=== PATIENT | female | born 1975 | race Caucasian/White ===

== ENCOUNTER 2017-01-30 06:27 | Inpatient (IN) | payer BC ==
[~2017-01-30 06:27] MED LIST: Lactated Ringers 1,000 ML IV SCH; Lidocaine 1%/Sod Bicarbonate in NS 8.4% 1 ML Syringe PRN; Sodium Chloride 0.9% 10 ML Syringe FLUSH PRN
[2017-01-30] MEDS ORDERED: Lidocaine 1% with EPINEPHrine 1:100,000 20 ML MDV ONE (06:32)
[2017-01-30] MEDS ORDERED: Sodium Chloride 0.9% 50 ML SDV ONE (06:32)
[2017-01-30] MEDS ORDERED: Bupivacaine 0.5% 30 ML SDV ONE (06:32)
[2017-01-30] MEDS ORDERED: Scopolamine 1.5 MG Transdermal Patch TRDERM ONE (06:47)
[2017-01-30] MEDS ORDERED: Dexamethasone 4 MG/ML 5 ML MDV ONE (06:52)
[2017-01-30] MEDS ORDERED: Ondansetron 4 MG/2 ML SDV ONE (06:52)
[2017-01-30] MEDS ORDERED: HYDROmorphone 1 MG/ML Syringe ONE ×2 (06:52→08:03)
[2017-01-30] MEDS ORDERED: Propofol 200 MG/20 ML SDV ONE ×2 (06:52→07:44)
[2017-01-30] MEDS ORDERED: ceFAZolin 1 GM Vial ONE (06:52)
[2017-01-30] MEDS ORDERED: Rocuronium 50 MG/5 ML Vial ONE (06:52)
--- NOTE | 2017-01-30 06:52 | PCM.PREANE ---
Preanesthetic Assessment - Anesthesia/Transfusion/Family Hx Anesthesia History: Prior Anesthesia Reaction Type of Anesthesia Reaction: Excessive Nausea/Vomiting Family History of Anesthesia Reaction: No Transfusion History: Unknown Type of Transfusion Reactions: Reports: Unknown - Review of Systems General: No Symptoms Pulmonary: No Symptoms Cardiovascular: No Symptoms Gastrointestinal: No Symptoms Neurological: No Symptoms Other: Reports: Thyroid Problems, Sinus Problem, Anxiety - Physical Assessment NPO Status Date: 01/29/17 NPO Status Time: 18:00 Pulse: 62 O2 Sat by Pulse Oximetry: 100 Respiratory Rate: 16 Blood Pressure: 118/62 Temperature: 36.8 C Height: 1.7 m Weight: 71.214 kg ASA Class: 2 Mental Status: Alert & Oriented x3 Airway Class: Mallampati = 2 Dentition: Reports: Normal Dentition Thyro-Mental Finger Breadths: 3 Mouth Opening Finger Breadths: 3 ROM/Head Extension: Full Lungs: Clear to Auscultation, Normal Respiratory Effort Cardiovascular: Regular Rate, Regular Rhythm - Lab Values: Laboratory Last Values WBC 4.78 K/mm3 (3.98-10.04) 01/29/17 09:03 RBC 4.57 M/mm3 (3.98-5.22) 01/29/17 09:03 Hgb 13.1 gm/L (11.2-15.7) 01/29/17 09:03 Hct 40.0 % (34.1-44.9) 01/29/17 09:03 MCV 87.5 fl (79.4-94.8) 01/29/17 09:03 MCH 28.7 pg (25.6-32.2) 01/29/17 09:03 MCHC 32.8 g/dl (32.2-35.5) 01/29/17 09:03 RDW Std Deviation 43.5 fL (36.4-46.3) 01/29/17 09:03 Plt Count 394 K/mm3 (182-369) H 01/29/17 09:03 MPV 9.7 fl (9.4-12.3) 01/29/17 09:03 Neut % (Auto) 53.4 % (34.0-71.1) 01/29/17 09:03 Lymph % (Auto) 32.6 % (19.3-51.7) 01/29/17 09:03 [place] % (Auto) 9.8 % (4.7-12.5) 01/29/17 09:03 Eos % (Auto) 3.6 (0.7-5.8) 01/29/17 09:03 Baso % (Auto) 0.4 % (0.1-1.2) 01/29/17 09:03 Neut # (Auto) 2.55 K/mm3 (1.56-6.13) 01/29/17 09:03 Lymph # (Auto) 1.56 K/mm3 (1.18-3.74) 01/29/17 09:03 [place] # (Auto) 0.47 K/mm3 (0.24-0.36) H 01/29/17 09:03 Eos # (Auto) 0.17 K/mm3 (0.04-0.36) 01/29/17 09:03 Baso # (Auto) 0.02 K/mm3 (0.01-0.08) 01/29/17 09:03 HCG, Quant 1.0 mIU/mL 01/29/17 09:03 Blood Type O POSITIVE 01/29/17 09:03 Gel Antibody Screen Negative 01/29/17 09:03 - Allergies Allergies/Adverse Reactions: Allergies Allergy/AdvReac Type Severity Reaction Status Date / Time No Known Allergies Allergy Verified 01/29/17 15:48 - Blood Blood Available: No Product(s) Available: None - Anesthesia Plan Pre-Op Medication Ordered: None - Acknowledgements Anesthesia Type Planned: General Anesthesia Pt an Appropriate Candidate for the Planned Anesthesia: Yes Alternatives and Risks of Anesthesia Discussed w Pt/Guardian: Yes Pt/Guardian Understands and Agrees with Anesthesia Plan: Yes PreAnesthesia Questionnaire HEENT History: Reports: Allergic Rhinitis, Impaired Vision, Sinusitis, Other ( See Below) Other HEENT History: wears glasses, contacts Cardiovascular History: Reports: None Respiratory History: Reports: Other (See Below) Other Respiratory History: cough Genitourinary History: Reports: None [employer] History: Reports: Other (See Below) Other OB/BYN History: dysmenorrhea, fibroids, menorrhagia, irregular menses Musculoskeletal History: Reports: Other (See Below) Other Musculoskeletal History: L wrist ganglion cyst Neurological History: Reports: None Psychiatric History: Reports: Anxiety, Other (See Below) Other Psychiatric History: insomnia Endocrine/Metabolic History: Reports: Hypothyroidism Hematologic History: Reports: None Immunologic History: Reports: None Oncologic (Cancer) History: Reports: None Dermatologic History: Reports: Other (See Below) Other Dermatologic History: perioral dermatitis - Past Surgical History Head Surgeries/Procedures: Reports: None HEENT Surgical History: Reports: Adenoidectomy, Tonsillectomy Cardiovascular Surgical History: Reports: None GI Surgical History: Reports: Appendectomy Neurological Surgical History: Reports: None Oncologic Surgical History: Reports: None - SUBSTANCE USE Smoking Status *Q: Never Smoker Second Hand Smoke Exposure: No Days Per Week of Alcohol Use: 0 Number of Drinks Per Day: 0 Total Drinks Per Week: 0 Recreational Drug Use History: No - HOME MEDS Home Medications: Home Meds Cholecalciferol (Vitamin D3) [Vitamin D3] 1,000 unit PO DAILY 01/29/17 [History] Fish Oil/[place]-3 Fatty Acids [Fish Oil 1,000 MG] 1 gm PO DAILY 01/29/17 [History ] Levothyroxine Sodium [Levothyroxine Sodium] 50 mg PO DAILY 01/29/17 [History] Multivitamin [Daily Rena] 1 tab PO DAILY 01/29/17 [History] - CURRENT (IN HOUSE) MEDS Current Meds: Current Medications Lactated Ringer's (Ringers, Lactated) 1,000 mls @ 125 mls/hr IV ASDIRECTED YOVANY Stop: 01/30/17 23:00 Lidocaine/Sodium Bicarbonate (Buffered Lidocaine 1% In Ns 8.4%) 0.25 ml .XX ONETIME PRN PRN Reason: Prior to IV Start Stop: 01/30/17 18:00 Sodium Chloride (Saline Flush) 10 ml FLUSH ASDIRECTED PRN PRN Reason: Keep Vein Open Stop: 01/30/17 18:00 Discontinued Medications Bupivacaine HCl (Marcaine 0.5%) Confirm Administered Dose 30 ml .ROUTE .STK-MED ONE Stop: 01/30/17 06:33 Cefazolin Sodium (Ancef) Confirm Administered Dose 2 gm .ROUTE .STK-MED ONE Stop: 01/30/17 06:53 Dexamethasone (Dexamethasone) Confirm Administered Dose 20 mg .ROUTE .STK-MED ONE Stop: 01/30/17 06:53 Fentanyl (Sublimaze) Confirm Administered Dose 250 mcg .ROUTE .STK-MED ONE Stop: 01/30/17 06:54 Hydromorphone HCl (Dilaudid) Confirm Administered Dose 1 mg .ROUTE .STK-MED ONE Stop: 01/30/17 06:53 Lidocaine/Epinephrine (Xylocaine 1% With Epinephrine 1:100,000) Confirm Administered Dose 20 ml .ROUTE .STK-MED ONE Stop: 01/30/17 06:33 Midazolam HCl (Versed 1 Mg/Ml) Confirm Administered Dose 2 mg .ROUTE .STK-MED ONE Stop: 01/30/17 06:54 Ondansetron HCl (Zofran) Confirm Administered Dose 4 mg .ROUTE .STK-MED ONE Stop: 01/30/17 06:53 Propofol (Diprivan 20 Ml) Confirm Administered Dose 200 mg .ROUTE .STK-MED ONE Stop: 01/30/17 06:53 Rocuronium [place] (Zemuron) Confirm Administered Dose 50 mg .ROUTE .STK-MED ONE Stop: 01/30/17 06:53 Sodium Chloride (Normal Saline) Confirm Administered Dose 50 ml .ROUTE .STK-MED ONE Stop: 01/30/17 06:33
[2017-01-30] MEDS ORDERED: fentaNYL 250 MCG/5 ML SDV ONE (06:53)
[2017-01-30] MEDS ORDERED: Midazolam 1 MG/ML 2 ML SDV ONE (06:53)
[2017-01-30] MEDS ORDERED: Ondansetron 4 MG/2 ML SDV IVPUSH PRN ×2 (06:56→10:55)
[2017-01-30] MEDS ORDERED: fentaNYL 100 MCG/2 ML SDV IVPUSH PRN (06:56)
[2017-01-30] MEDS ORDERED: Metoclopramide 10 MG/2 ML SDV IVPUSH PRN (06:56)
[2017-01-30] MEDS ORDERED: Ketorolac 30 MG/ML SDV ONE (08:00)
[2017-01-30] MEDS ORDERED: Glycopyrrolate 0.2 MG/ML SDV ONE (08:00)
[2017-01-30] MEDS ORDERED: HYDROmorphone 0.5 MG/0.5 ML Syringe IVPUSH PRN (08:00)
[2017-01-30] MEDS ORDERED: diphenhydrAMINE 50 MG/ML SDV ONE (08:06)
[2017-01-30] MEDS ORDERED: Lactated Ringers 1,000 ML ONE ×2 (08:15→09:10)
[2017-01-30] MEDS ORDERED: Neostigmine Methylsulfate 10 MG/10 ML MDV ONE (09:05)
--- NOTE | 2017-01-30 09:18 | PCM.POSTAN ---
POST ANESTHESIA ASSESSMENT - MENTAL STATUS Mental Status: Alert - VITAL SIGNS Pulse Rate: 74 SaO2: 100 Resp Rate: 9 Blood Pressure: 116/60 Temperature: 36.4 C - RESPIRATORY Respiratory Status: respiratory rate WNL, Airway Patent, O2 Saturation Stable, Supplemental Oxygen - CARDIOVASCULAR CV Status: Pulse Rate WNL, Blood Pressure Stable - GASTROINTESTINAL GI Status: No Symptoms - PAIN Pain Score: 0 - POST OP HYDRATION Hydration Status: Adequate & Stable
--- NOTE | 2017-01-30 09:31 | PCM.OPNOTE ---
- General Post-Op/Procedure Note Date of Surgery/Procedure: 01/30/17 Operative Procedure(s): Diagnostic laparoscopy with lysis of adhesions, total abdominal hysterectomy bilateral salpingectomy (ovaries not removed) Pre Op Diagnosis: Multiple fibroids of the uterus, irregular menses, dysmenorrhea Post-Op Diagnosis: Same Anesthesia Technique: General ET Tube Primary Surgeon: Magdi Emanuel Secondary Surgeon: Sundeep Marroquin Anesthesia Provider: Rema Dick Psychologist Clinical: Kaylynn Phillips Fluid Replacement, Intraop: 2,000 Output, Urine Amount: 260 EBL in mLs: 75 Drain/Tube Comments:: Alas catheter to gravity drainage Complications: None Condition: Good Free Text/Narrative:: Patient was transported to operating room #2 and placed under general anesthesia within the tracheal intubation in the low dorsal lithotomy position SCDs in place and functioning prior surgery Ancef 2 g given intravenously prior surgery. Timeout was performed confirming patient's name, date of , and procedure as laparoscope assisted vaginal hysterectomy possible vaginal hysterectomy possible total abdominal hysterectomy with removal of tubes and possible removal of one or both ovaries in (procedure performed laparoscopy with lysis of adhesions and after evaluation of the surgical area proceeding with total abdominal hysterectomy bilateral salpingectomy and (ovaries not removed)) examination under anesthesia revealed multinodular uterus with minimal descensus. Not much mobility of the uterus under anesthesia and very little descensus with traction and uterine manipulator was placed and patient prepared and draped in a sterile fashion vaginal and abdominal prep. The laparoscopy was performed by injecting 2 mL of Marcaine 0.5% without epinephrine at the umbilicus and midline suprapubic area 5 mm incision was made in pneumoperitoneum needle was introduced and pneumoperitoneum obtained without difficulty 5 mm trocar was then introduced and a additional 5 mm trocar introduced in the suprapubic area and after evaluation of the pelvic organs there were multiple fibroids with adhesions scar tissue and after thorough evaluation of the pelvic area decision made to proceed abdominally. A Pfannenstiel incision was made and carried sharp section to into the anterior fascia peritoneal cavity was entered without difficulty a large Xavier retractor inserted and uterus grasp with double-tooth tenaculum at the fundus and shane clamps at each cornua the left tube removed with LigaSure impact crossclamping activating and incising the left tube removed and proceeding in a pedicle fashion crossclamping activating and incising proceeding towards the uterine vessels on the left side. The right side right tube was then removed in a similar fashion proceeding in a pedicle fashion caudad crossclamping activating and incising until both sets of uterine artery supply to the uterus were transected without difficulty having created a bladder flap this was pushed caudad and the fundus and corpus of the uterus transected at the superior portion of the cervix lower uterine segment to allow for visibility and surgery dissection the cervix was identified palpating anteriorly and posteriorly and utilizing LigaSure impact crossclamping activating incising the vaginal cavity was entered without difficulty and the cervix was removed the vaginal cuff was closed with a running locked suture of 0 Monocryl irrigation was carried out with 500 mL of saline and 250 mL of water followed by 250 mL of saline. Sponge needle pack asthma sharp count correct 2 no bleeding good hemostasis the abdominal cavity was closed with running suture of #1 PDS. The subcutaneous tissue was closed with interrupted 0 Monocryl 3 and the skin was closed with subcuticular suture 3-0 Monocryl with Marlo needle Dermabond P[place]o applied and the umbilical incision was closed with 3-0 Monocryl and Dermabond applied 13 images were taken image 001 shows the left adnexa with the left tube and round ligament at 5:00 of multi nodular fibroid also at 1:00 a small fibroid and above the round ligament on the left side at approximately 12:00 a fibroid image 002 shows adhesions and scar tissue of the right adnexa with multiple fibroids ovary is not visible image 003 shows the multinodular fibroid with uterus with multi fibroids as well image 004 shows the anterior portion of the uterus with multiple fibroids image 005 shows left ovary with the left tube on stretch image 006 shows the right adnexa with adhesions and these adhesions were lysed with blunt and sharp section to allow further evaluation the pelvic area for surgery to determine if flap scope cystovaginal hysterectomy could be performed image 007 shows the right adnexa after lysis of adhesions. Image 008 shows anterior small fibroid in the anterior cul-de-sac image 009 shows area of previous appendectomy image 010 shows one adhesion of the liver to the abdominal wall image 011 shows area of the gallbladder image 012 shows the posterior cul-de-sac image 013 shows anterior left side of the uterus was again adhesions of the fibroid to the anterior abdominal wall and a small fibroid on the surface of the uterus No blood transfusions were required patient was transported postanesthesia care unit in satisfactory condition Alas catheter remains in place to talk with the patient's mother and father and patient will be staying in the hospital overnight
[2017-01-30] MEDS ORDERED: Acetaminophen/oxyCODONE 325-5 MG Tab PO PRN (10:55)
--- NOTE | 2017-01-30 12:59 | PCM.SN ---
- Free Text/Narrative Note: DOS patient awake alert, pain controlled, no vaginal bleeding. De Dios draining well. SCD's in place and working. All questions answered to voiced satisfaction. Remove de dios 0500 in Am and hopefully home tomorrow if progress continues.
[2017-01-30] MEDS ORDERED: Ketorolac 30 MG/ML SDV IVPUSH PRN (14:30)
[2017-01-30] MEDS: Acetaminophen 325 MG Tab PO PRN (15:01)
[2017-01-30] MEDS: Ketorolac 30 MG/ML SDV IVPUSH PRN (19:08)
[2017-01-30] MEDS: Docusate Sodium 100 MG Cap PO SCH (21:15)
[2017-01-31] MEDS: Ketorolac 30 MG/ML SDV IVPUSH PRN (01:29)
[2017-01-31] MEDS: Acetaminophen 325 MG Tab PO PRN (05:00)
[2017-01-31] MEDS ORDERED: Levothyroxine 50 MCG Tab PO SCH (06:00)
--- NOTE | 2017-01-31 06:57 | PCM.DCSUM1 ---
Discharge Summary - Hospital Course Free Text/Narrative:: [facility] Post-Op/Procedure Note Patient Name: CHRISTIANA AHMADI Date of : 77 Patient Status: Inpatient Attending Provider: Magdi Emanuel Date: 01/30/17 09:17 Initialization Date: 01/30/17 09:17 - General Post-Op/Procedure Note Date of Surgery/Procedure: 01/30/17 Operative Procedure(s): Diagnostic laparoscopy with lysis of adhesions, total abdominal hysterectomy bilateral salpingectomy (ovaries not removed) Pre Op Diagnosis: Multiple fibroids of the uterus, irregular menses, dysmenorrhea Post-Op Diagnosis: Same Anesthesia Technique: General ET Tube Primary Surgeon: Magdi Emanuel Secondary Surgeon: Sundeep Marroquin Anesthesia Provider: Rema [employer] Team Member: Kaylynn Phillips Fluid Replacement, Intraop: 2,000 Output, Urine Amount: 260 EBL in mLs: 75 Drain/Tube Comments:: Alas catheter to gravity drainage Complications: None Condition: Good Free Text/Narrative:: Patient was transported to operating room #2 and placed under general anesthesia within the tracheal intubation in the low dorsal lithotomy position SCDs in place and functioning prior surgery Ancef 2 g given intravenously prior surgery. Timeout was performed confirming patient's name, date of , and procedure as laparoscope assisted vaginal hysterectomy possible vaginal hysterectomy possible total abdominal hysterectomy with removal of tubes and possible removal of one or both ovaries in (procedure performed laparoscopy with lysis of adhesions and after evaluation of the surgical area proceeding with total abdominal hysterectomy bilateral salpingectomy and (ovaries not removed)) examination under anesthesia revealed multinodular uterus with minimal descensus. Not much mobility of the uterus under anesthesia and very little descensus with traction and uterine manipulator was placed and patient prepared and draped in a sterile fashion vaginal and abdominal prep. The laparoscopy was performed by injecting 2 mL of Marcaine 0.5% without epinephrine at the umbilicus and midline suprapubic area 5 mm incision was made in pneumoperitoneum needle was introduced and pneumoperitoneum obtained without difficulty 5 mm trocar was then introduced and a additional 5 mm trocar introduced in the suprapubic area and after evaluation of the pelvic organs there were multiple fibroids with adhesions scar tissue and after thorough evaluation of the pelvic area decision made to proceed abdominally. A Pfannenstiel incision was made and carried sharp section to into the anterior fascia peritoneal cavity was entered without difficulty a large Xavier retractor inserted and uterus grasp with double-tooth tenaculum at the fundus and shane clamps at each cornua the left tube removed with LigaSure impact crossclamping activating and incising the left tube removed and proceeding in a pedicle fashion crossclamping activating and incising proceeding towards the uterine vessels on the left side. The right side right tube was then removed in a similar fashion proceeding in a pedicle fashion caudad crossclamping activating and incising until both sets of uterine artery supply to the uterus were transected without difficulty having created a bladder flap this was pushed caudad and the fundus and corpus of the uterus transected at the superior portion of the cervix lower uterine segment to allow for visibility and surgery dissection the cervix was identified palpating anteriorly and posteriorly and utilizing LigaSure impact crossclamping activating incising the vaginal cavity was entered without difficulty and the cervix was removed the vaginal cuff was closed with a running locked suture of 0 Monocryl irrigation was carried out with 500 mL of saline and 250 mL of water followed by 250 mL of saline. Sponge needle pack asthma sharp count correct 2 no bleeding good hemostasis the abdominal cavity was closed with running suture of #1 PDS. The subcutaneous tissue was closed with interrupted 0 Monocryl 3 and the skin was closed with subcuticular suture 3-0 Monocryl with Marlo needle Dermabond Preneo applied and the umbilical incision was closed with 3-0 Monocryl and Dermabond applied 13 images were taken image 001 shows the left adnexa with the left tube and round ligament at 5:00 of multi nodular fibroid also at 1:00 a small fibroid and above the round ligament on the left side at approximately 12:00 a fibroid image 002 shows adhesions and scar tissue of the right adnexa with multiple fibroids ovary is not visible image 003 shows the multinodular fibroid with uterus with multi fibroids as well image 004 shows the anterior portion of the uterus with multiple fibroids image 005 shows left ovary with the left tube on stretch image 006 shows the right adnexa with adhesions and these adhesions were lysed with blunt and sharp section to allow further evaluation the pelvic area for surgery to determine if flap scope cystovaginal hysterectomy could be performed image 007 shows the right adnexa after lysis of adhesions. Image 008 shows anterior small fibroid in the anterior cul-de-sac image 009 shows area of previous appendectomy image 010 shows one adhesion of the liver to the abdominal wall image 011 shows area of the gallbladder image 012 shows the posterior cul-de-sac image 013 shows anterior left side of the uterus was again adhesions of the fibroid to the anterior abdominal wall and a small fibroid on the surface of the uterus No blood transfusions were required patient was transported postanesthesia care unit in satisfactory condition Alas catheter remains in place to talk with the patient's mother and father and patient will be staying in the hospital overnight Alas removed early this AM. Patient did well through the night and will be dismissed to RTC 02/20/2017 HPI Initial Comments: [facility] Post-Op/Procedure Note Patient Name: CHRISTIANA AHMADI Date of : 77 Patient Status: Inpatient Attending Provider: Magdi Emanuel Date: 01/30/17 09:17 Initialization Date: 01/30/17 09:17 - General Post-Op/Procedure Note Date of Surgery/Procedure: 01/30/17 Operative Procedure(s): Diagnostic laparoscopy with lysis of adhesions, total abdominal hysterectomy bilateral salpingectomy (ovaries not removed) Pre Op Diagnosis: Multiple fibroids of the uterus, irregular menses, dysmenorrhea Post-Op Diagnosis: Same Anesthesia Technique: General ET Tube Primary Surgeon: Magdi Emanuel Secondary Surgeon: Sundeep Marroquin Anesthesia Provider: Rema [employer] Team Member: Kaylynn Phillips Fluid Replacement, Intraop: 2,000 Output, Urine Amount: 260 EBL in mLs: 75 Drain/Tube Comments:: Alas catheter to gravity drainage Complications: None Condition: Good Free Text/Narrative:: Patient was transported to operating room #2 and placed under general anesthesia within the tracheal intubation in the low dorsal lithotomy position SCDs in place and functioning prior surgery Ancef 2 g given intravenously prior surgery. Timeout was performed confirming patient's name, date of , and procedure as laparoscope assisted vaginal hysterectomy possible vaginal hysterectomy possible total abdominal hysterectomy with removal of tubes and possible removal of one or both ovaries in (procedure performed laparoscopy with lysis of adhesions and after evaluation of the surgical area proceeding with total abdominal hysterectomy bilateral salpingectomy and (ovaries not removed)) examination under anesthesia revealed multinodular uterus with minimal descensus. Not much mobility of the uterus under anesthesia and very little descensus with traction and uterine manipulator was placed and patient prepared and draped in a sterile fashion vaginal and abdominal prep. The laparoscopy was performed by injecting 2 mL of Marcaine 0.5% without epinephrine at the umbilicus and midline suprapubic area 5 mm incision was made in pneumoperitoneum needle was introduced and pneumoperitoneum obtained without difficulty 5 mm trocar was then introduced and a additional 5 mm trocar introduced in the suprapubic area and after evaluation of the pelvic organs there were multiple fibroids with adhesions scar tissue and after thorough evaluation of the pelvic area decision made to proceed abdominally. A Pfannenstiel incision was made and carried sharp section to into the anterior fascia peritoneal cavity was entered without difficulty a large Xavier retractor inserted and uterus grasp with double-tooth tenaculum at the fundus and shane clamps at each cornua the left tube removed with LigaSure impact crossclamping activating and incising the left tube removed and proceeding in a pedicle fashion crossclamping activating and incising proceeding towards the uterine vessels on the left side. The right side right tube was then removed in a similar fashion proceeding in a pedicle fashion caudad crossclamping activating and incising until both sets of uterine artery supply to the uterus were transected without difficulty having created a bladder flap this was pushed caudad and the fundus and corpus of the uterus transected at the superior portion of the cervix lower uterine segment to allow for visibility and surgery dissection the cervix was identified palpating anteriorly and posteriorly and utilizing LigaSure impact crossclamping activating incising the vaginal cavity was entered without difficulty and the cervix was removed the vaginal cuff was closed with a running locked suture of 0 Monocryl irrigation was carried out with 500 mL of saline and 250 mL of water followed by 250 mL of saline. Sponge needle pack asthma sharp count correct 2 no bleeding good hemostasis the abdominal cavity was closed with running suture of #1 PDS. The subcutaneous tissue was closed with interrupted 0 Monocryl 3 and the skin was closed with subcuticular suture 3-0 Monocryl with Marlo needle Dermabond Preneo applied and the umbilical incision was closed with 3-0 Monocryl and Dermabond applied 13 images were taken image 001 shows the left adnexa with the left tube and round ligament at 5:00 of multi nodular fibroid also at 1:00 a small fibroid and above the round ligament on the left side at approximately 12:00 a fibroid image 002 shows adhesions and scar tissue of the right adnexa with multiple fibroids ovary is not visible image 003 shows the multinodular fibroid with uterus with multi fibroids as well image 004 shows the anterior portion of the uterus with multiple fibroids image 005 shows left ovary with the left tube on stretch image 006 shows the right adnexa with adhesions and these adhesions were lysed with blunt and sharp section to allow further evaluation the pelvic area for surgery to determine if flap scope cystovaginal hysterectomy could be performed image 007 shows the right adnexa after lysis of adhesions. Image 008 shows anterior small fibroid in the anterior cul-de-sac image 009 shows area of previous appendectomy image 010 shows one adhesion of the liver to the abdominal wall image 011 shows area of the gallbladder image 012 shows the posterior cul-de-sac image 013 shows anterior left side of the uterus was again adhesions of the fibroid to the anterior abdominal wall and a small fibroid on the surface of the uterus No blood transfusions were required patient was transported postanesthesia care unit in satisfactory condition Alas catheter remains in place to talk with the patient's mother and father and patient will be staying in the hospital overnight Alas removed early this AM. Patient did well through the night and will be dismissed to RTC 02/20/2017 Brief History: [facility] . Post-Op/Procedure Note. Patient Name: CHRISTIANA AHMADI [facility] Record Number: [id number]. Date of : [birth year]Patient Status: Inpatient. Attending Provider: Magdi Emanuel Number: [id number]. Date: 01/30/17 09:17Initialization Date: 01/30/17 09:17. - General Post-Op/Procedure Note. Date of Surgery/Procedure: 01/30/17. Operative Procedure(s): Diagnostic laparoscopy with lysis of adhesions, total abdominal hysterectomy bilateral salpingectomy (ovaries not removed). Pre Op Diagnosis: Multiple fibroids of the uterus, irregular menses, dysmenorrhea. Post-Op Diagnosis: Same. Anesthesia Technique: General ET Tube. Primary Surgeon: Magdi Emanuel. Secondary Surgeon: Sundeep Marroquin. Anesthesia Provider: Rema Dick. [employer] Team Member: Kaylynn Phillips. Fluid Replacement, Intraop: 2,000. Output, Urine Amount: 260. EBL in mLs: 75. Drain/Tube Comments:: Alas catheter to gravity drainage. Complications: None. Condition : Good. Free Text/Narrative:: Patient was transported to operating room #2 and placed under general anesthesia within the tracheal intubation in the low dorsal lithotomy position SCDs in place and functioning prior surgery Ancef 2 g given intravenously prior surgery. Timeout was performed confirming patient's name, date of , and procedure as laparoscope assisted vaginal hysterectomy possible vaginal hysterectomy possible total abdominal hysterectomy with removal of tubes and possible removal of one or both ovaries in (procedure performed laparoscopy with lysis of adhesions and after evaluation of the surgical area proceeding with total abdominal hysterectomy bilateral salpingectomy and (ovaries not removed)) examination under anesthesia revealed multinodular uterus with minimal descensus. Not much mobility of the uterus under anesthesia and very little descensus with traction and uterine manipulator was placed and patient prepared and draped in a sterile fashion vaginal and abdominal prep. The laparoscopy was performed by injecting 2 mL of Marcaine 0.5% without epinephrine at the umbilicus and midline suprapubic area 5 mm incision was made in pneumoperitoneum needle was introduced and pneumoperitoneum obtained without difficulty 5 mm trocar was then introduced and a additional 5 mm trocar introduced in the suprapubic area and after evaluation of the pelvic organs there were multiple fibroids with adhesions scar tissue and after thorough evaluation of the pelvic area decision made to proceed abdominally. A Pfannenstiel incision was made and carried sharp section to into the anterior fascia peritoneal cavity was entered without difficulty a large Xavier retractor inserted and uterus grasp with double-tooth tenaculum at the fundus and shane clamps at each cornua the left tube removed with LigaSure impact crossclamping activating and incising the left tube removed and proceeding in a pedicle fashion crossclamping activating and incising proceeding towards the uterine vessels on the left side. The right side right tube was then removed in a similar fashion proceeding in a pedicle fashion caudad crossclamping activating and incising until both sets of uterine artery supply to the uterus were transected without difficulty having created a bladder flap this was pushed caudad and the fundus and corpus of the uterus transected at the superior portion of the cervix lower uterine segment to allow for visibility and surgery dissection the cervix was identified palpating anteriorly and posteriorly and utilizing LigaSure impact crossclamping activating incising the vaginal cavity was entered without difficulty and the cervix was removed the vaginal cuff was closed with a running locked suture of 0 Monocryl irrigation was carried out with 500 mL of saline and 250 mL of water followed by 250 mL of saline. Sponge needle pack asthma sharp count correct 2 no bleeding good hemostasis the abdominal cavity was closed with running suture of #1 PDS. The subcutaneous tissue was closed with interrupted 0 Monocryl 3 and the skin was closed with subcuticular suture 3-0 Monocryl with Marlo needle Dermabond Preneo applied and the umbilical incision was closed with 3-0 Monocryl and Dermabond applied. 13 images were taken image 001 shows the left adnexa with the left tube and round ligament at 5:00 of multi nodular fibroid also at 1:00 a small fibroid and above the round ligament on the left side at approximately 12:00 a fibroid image 002 shows adhesions and scar tissue of the right adnexa with multiple fibroids ovary is not visible image 003 shows the multinodular fibroid with uterus with multi fibroids as well image 004 shows the anterior portion of the uterus with multiple fibroids image 005 shows left ovary with the left tube on stretch image 006 shows the right adnexa with adhesions and these adhesions were lysed with blunt and sharp section to allow further evaluation the pelvic area for surgery to determine if flap scope cystovaginal hysterectomy could be performed image 007 shows the right adnexa after lysis of adhesions. Image 008 shows anterior small fibroid in the anterior cul-de-sac image 009 shows area of previous appendectomy image 010 shows one adhesion of the liver to the abdominal wall image 011 shows area of the gallbladder image 012 shows the posterior cul-de-sac image 013 shows anterior left side of the uterus was again adhesions of the fibroid to the anterior abdominal wall and a small fibroid on the surface of the uterus. No blood transfusions were required patient was transported postanesthesia care unit in satisfactory condition Alas catheter remains in place to talk with the patient's mother and father and patient will be staying in the hospital overnight. Alas removed early this AM. Patient did well through the night and will be dismissed to [facility] 02/20/2017 - Discharge Data Discharge Date: 01/31/17 Discharge Disposition: Home, Self-Care 01 Condition: Good - Discharge Diagnosis/Problem(s) (1) Pelvic peritoneal adhesions, female SNOMED Code(s): 97889023 ICD Code: N73.6 - FEMALE PELVIC PERITONEAL ADHESIONS (POSTINFECTIVE) Status : Acute Current Visit: Yes (2) Dysmenorrhea SNOMED Code(s): 333337584 ICD Code: N94.6 - DYSMENORRHEA, UNSPECIFIED Status: Acute Current Visit: Yes (3) Irregular menstruation SNOMED Code(s): 35183904 ICD Code: N92.6 - IRREGULAR MENSTRUATION, UNSPECIFIED Status: Acute Current Visit: Yes (4) Leiomyoma of uterus SNOMED Code(s): 09841670 ICD Code: D25.9 - LEIOMYOMA OF UTERUS, UNSPECIFIED Status: Acute Current Visit: Yes Qualifiers: Uterine leiomyoma location: intramural, submucous, and subserous Qualified Code(s): D25.1 - Intramural leiomyoma of uterus; D25.0 - Submucous leiomyoma of uterus; D25.2 - Subserosal leiomyoma of uterus - Patient Summary/Data Operative Procedure(s) Performed: Diagnostic laparoscopy with lysis of adhesions , total abdominal hysterectomy bilateral salpingectomy (ovaries not removed) Complications: none Consults: none Hospital Course: uneventful - Patient Instructions Diet: Heart Healthy Diet Driving: Do Not Drive (x2 weeks) Showering/Bathing: May Shower, No Tub Bathing/Swimming (x6 weeks) Wound/Incision Care: Keep Operative Site/Wound Site Clean and Dry Notify Provider of: Fever, Increased Pain, Swelling and Redness, Drainage, Nausea and/or Vomiting - Discharge Plan Home Medications: Home Meds Cholecalciferol (Vitamin D3) [Vitamin D3] 1,000 unit PO DAILY 01/29/17 [History] Fish Oil/[place]-3 Fatty Acids [Fish Oil 1,000 MG] 1 gm PO DAILY 01/29/17 [History ] Levothyroxine Sodium 50 mg PO DAILY 01/29/17 [History] Multivitamin [Daily Rena] 1 tab PO DAILY 01/29/17 [History] Acetaminophen [Tylenol] 650 mg PO Q6H PRN #0 tablet 01/31/17 [Rx] Docusate Sodium [Colace] 100 mg PO BID cap 01/31/17 [Rx] Ibuprofen [IJD: Ibuprofen] 200 - 600 mg PO Q6H PRN #0 tablet 01/31/17 [Rx] Referrals: Magdi Emanuel MD [Primary Care Provider] - (02/20/2017) - Discharge Summary/Plan Comment DC Time >30 min.: No - Patient Data Vitals - Most Recent: Last Vital Signs Temp 98.1 F 01/31/17 04:00 Pulse 49 L 01/31/17 05:09 Resp 17 01/31/17 04:00 BP 89/37 L 01/31/17 05:09 Pulse Ox 99 01/31/17 05:09 Weight - Most Recent: 153 lb 1.6 oz I&O - Last 24 hours: Intake & Output 01/30/17 01/30/17 01/31/17 14:59 22:59 06:59 Intake Total 2200 1890 800 Output Total 321 681 8557 Balance 1630 1290 -1175 Lab Results - Last 24 hrs: Laboratory Results - last 24 hr 01/31/17 Range/Units 06:00 WBC 9.04 (3.98-10.04) K/mm3 RBC 3.82 L (3.98-5.22) M/mm3 Hgb 11.0 L (11.2-15.7) gm/L Hct 33.8 L (34.1-44.9) % MCV 88.5 (79.4-94.8) fl MCH 28.8 (25.6-32.2) pg MCHC 32.5 (32.2-35.5) g/dl RDW Std Deviation 43.6 (36.4-46.3) fL Plt Count 320 (182-369) K/mm3 MPV 9.8 (9.4-12.3) fl Neut % (Auto) 64.4 (34.0-71.1) % Lymph % (Auto) 24.1 (19.3-51.7) % [place] % (Auto) 10.6 (4.7-12.5) % Eos % (Auto) 0.7 (0.7-5.8) Baso % (Auto) 0.1 (0.1-1.2) % Neut # (Auto) 5.82 (1.56-6.13) K/mm3 Lymph # (Auto) 2.18 (1.18-3.74) K/mm3 [place] # (Auto) 0.96 H (0.24-0.36) K/mm3 Eos # (Auto) 0.06 (0.04-0.36) K/mm3 Baso # (Auto) 0.01 (0.01-0.08) K/mm3 Med Orders - Current: Current Medications Acetaminophen (Tylenol) 650 mg PO Q4H PRN PRN Reason: Pain (mild 1-3) Last Admin: 01/31/17 05:00 Dose: 650 mg Docusate Sodium (Colace) 100 mg PO BID [facility] Last Admin: 01/30/17 21:15 Dose: 100 mg Ibuprofen (Motrin) 600 mg PO Q6H PRN PRN Reason: Pain (mild 1-3) Ketorolac Tromethamine (Toradol) 30 mg IVPUSH Q6H PRN PRN Reason: Pain Stop: 01/31/17 12:30 Last Admin: 01/31/17 01:29 Dose: 30 mg Levothyroxine Sodium (Synthroid) 50 mcg PO ACBREAKFAST [facility] Last Admin: 01/31/17 05:00 Dose: 50 mcg Ondansetron HCl (Zofran) 4 mg IVPUSH Q4H PRN PRN Reason: Nausea/Vomiting Oxycodone/Acetaminophen (Percocet 325-5 Mg) 2 tab PO Q4H PRN PRN Reason: Pain (moderate 4-6) Discontinued Medications Bupivacaine HCl (Marcaine 0.5%) Confirm Administered Dose 30 ml .ROUTE .STK-MED ONE Stop: 01/30/17 06:33 Last Admin: 01/30/17 07:42 Dose: 4 ml Cefazolin Sodium (Ancef) Confirm Administered Dose 2 gm .ROUTE .STK-MED ONE Stop: 01/30/17 06:53 Dexamethasone (Dexamethasone) Confirm Administered Dose 20 mg .ROUTE .STK-MED ONE Stop: 01/30/17 06:53 Diphenhydramine HCl (Benadryl) Confirm Administered Dose 50 mg .ROUTE .STK-MED ONE Stop: 01/30/17 08:07 Fentanyl (Sublimaze) Confirm Administered Dose 250 mcg .ROUTE .STK-MED ONE Stop: 01/30/17 06:54 Fentanyl (Sublimaze) 50 mcg IVPUSH Q5M PRN PRN Reason: pain Stop: 01/30/17 18:00 Hydromorphone HCl (Dilaudid) Confirm Administered Dose 1 mg .ROUTE .STK-MED ONE Stop: 01/30/17 06:53 Hydromorphone HCl (Dilaudid) 0.5 mg IVPUSH Q15M PRN PRN Reason: Pain (severe 7-10) Stop: 01/30/17 08:16 Last Admin: 01/30/17 09:44 Dose: 0.5 mg Hydromorphone HCl (Dilaudid) Confirm Administered Dose 1 mg .ROUTE .STK-MED ONE Stop: 01/30/17 08:04 Lactated Ringer's (Ringers, Lactated) 1,000 mls @ 125 mls/hr IV ASDIRECTED YOVANY Stop: 01/30/17 23:00 Last Admin: 01/30/17 06:45 Dose: 125 mls/hr Lactated Ringer's (Ringers, Lactated) Confirm Administered Dose 1,000 mls @ as directed .ROUTE .STK-MED ONE Stop: 01/30/17 08:16 Lactated Ringer's (Ringers, Lactated) Confirm Administered Dose 1,000 mls @ as directed .ROUTE .STK-MED ONE Stop: 01/30/17 09:11 Ketorolac Tromethamine (Toradol) Confirm Administered Dose 30 mg .ROUTE .STK- MED ONE Stop: 01/30/17 08:01 Ketorolac Tromethamine (Toradol) 30 mg IVPUSH Q8H PRN PRN Reason: Pain (moderate 4-6) Stop: 01/31/17 06:31 Lidocaine/Epinephrine (Xylocaine 1% With Epinephrine 1:100,000) Confirm Administered Dose 20 ml .ROUTE .STK-MED ONE Stop: 01/30/17 06:33 Lidocaine/Sodium Bicarbonate (Buffered Lidocaine 1% In Ns 8.4%) 0.25 ml .XX ONETIME PRN PRN Reason: Prior to IV Start Stop: 01/30/17 18:00 Last Admin: 01/30/17 06:45 Dose: 0.25 ml Metoclopramide HCl (Reglan) 10 mg IVPUSH ONETIME PRN PRN Reason: Nausea/Vomiting Stop: 01/30/17 18:00 Midazolam HCl (Versed 1 Mg/Ml) Confirm Administered Dose 2 mg .ROUTE .STK-MED ONE Stop: 01/30/17 06:54 Neostigmine Methylsulfate (Neostigmine Methylsulfate) Confirm Administered Dose 10 mg .ROUTE .STK-MED ONE Stop: 01/30/17 09:06 Ondansetron HCl (Zofran) Confirm Administered Dose 4 mg .ROUTE .STK-MED ONE Stop: 01/30/17 06:53 Ondansetron HCl (Zofran) 4 mg IVPUSH ONETIME PRN PRN Reason: Nausea/Vomiting Stop: 01/30/17 18:00 Propofol (Diprivan 20 Ml) Confirm Administered Dose 200 mg .ROUTE .STK-MED ONE Stop: 01/30/17 06:53 Propofol (Diprivan 20 Ml) Confirm Administered Dose 200 mg .ROUTE .STK-MED ONE Stop: 01/30/17 07:45 Rocuronium [place] (Zemuron) Confirm Administered Dose 50 mg .ROUTE .STK-MED ONE Stop: 01/30/17 06:53 Scopolamine (Transderm-Scop) 1.5 mg TRDERM ONETIME ONE Stop: 01/30/17 06:48 Last Admin: 01/30/17 07:00 Dose: 1.5 mg Sodium Chloride (Saline Flush) 10 ml FLUSH ASDIRECTED PRN PRN Reason: Keep Vein Open Stop: 01/30/17 18:00 Sodium Chloride (Normal Saline) Confirm Administered Dose 50 ml .ROUTE .STK-MED ONE Stop: 01/30/17 06:33 *Q Meaningful Use (DIS) - VTE *Q VTE Criteria *Q: - Stroke *Q Stroke Criteria *Q: - AMI *Q AMI Criteria *Q:
[2017-01-31 08:04] VITALS: BP 107/33
[2017-01-31] MEDS: Docusate Sodium 100 MG Cap PO SCH (08:20)
[2017-01-31] MEDS ORDERED: Ibuprofen 600 MG Tab PO PRN (08:30)
--- NOTE | 2017-01-31 10:57 | PCM48HPAN ---
Post Anesthesia Note - EVALUATION WITHIN 48HRS OF ANESTHETIC Vital Signs in Normal Range: Yes Patient Participated in Evaluation: Yes Respiratory Function Stable: Yes Airway Patent: Yes Cardiovascular Function Stable: Yes Hydration Status Stable: Yes Pain Control Satisfactory: Yes Nausea and Vomiting Control Satisfactory: Yes Mental Status Recovered: Yes - COMMENTS/OBSERVATIONS Free Text/Narrative:: Patients pain was well controlled during the assessment. Denied any PONV. Does not have any complaints.
== END 2017-01-31 09:11 | disposition home or self-care (01) | DRG 513 ==
LOC: JD.SDS 06:27 → JD.MS 10:13
PROVIDERS: ADMIT Obstetrics & Gynecology; ATTEND Obstetrics & Gynecology
PROC: 0UT90ZZ Resection of Uterus, Open Approach (ICD-10-PCS; principal; 2017-01-30)
PROC: 0UTC0ZZ Resection of Cervix, Open Approach (ICD-10-PCS; 2017-01-30)
PROC: 0UT70ZZ Resection of Bilateral Fallopian Tubes, Open Approach (ICD-10-PCS; 2017-01-30)
DX: N94.6 Dysmenorrhea, unspecified (principal); D25.9 Leiomyoma of uterus, unspecified; N92.6 Irregular menstruation, unspecified; N73.6 Female pelvic peritoneal adhesions (postinfective); E03.9 Hypothyroidism, unspecified; J30.9 Allergic rhinitis, unspecified; F41.9 Anxiety disorder, unspecified; Z79.899 Other long term (current) drug therapy
CPT/HCPCS: 00840; 36415; 84702; 85025; 86850; 86900; 86901; 88307; 88307-26; A9270-GY; J0690; J1100; J1170; J1200; J1885; J2250; J2405; J2704; J2710; J3010; J7120

== ENCOUNTER 2019-06-17 15:39 | Emergency (ER) | payer BC ==
[2019-06-17 16:02] VITALS: BP 115/60; PULSE 64
--- NOTE | 2019-06-17 16:43 | EDM.PDOC ---
ED HPI GENERAL MEDICAL PROBLEM - General Chief Complaint: Abdominal Pain Stated Complaint: ABDOMINAL PAIN Time Seen by Provider: 06/17/19 16:42 - History of Present Illness INITIAL COMMENTS - FREE TEXT/NARRATIVE: 43-year-old female presents emergency room with abdominal pain. This pain started yesterday evening after eating at a high school football game hotdogs chips. It kind of waxed and waned through the day early this afternoon she had some applesauce and a piece of toast and the pain got significantly worse after this she presented to the emergency room for evaluation and treatment. She denies any fevers chills just has pretty significant pain. She describes the pain is been generalized in her abdomen perhaps a little worse in the right upper quadrant. She's had a prior history of hysterectomy and appendectomy. She's had some nausea minimal vomiting Treatments BRICK TENDER: Reports: Acetaminophen Upper Abdominal Pain Score (Numeric/FACES): 8 - Related Data Allergies Allergy/AdvReac Type Severity Reaction Status Date / Time No Known Allergies Allergy Verified 06/17/19 15:56 Home Meds: Home Meds Cholecalciferol (Vitamin D3) [Vitamin D3] 1,000 unit PO DAILY 01/29/17 [History] Fish Oil/[place]-3 Fatty Acids [Fish Oil 1,000 MG] 1 gm PO DAILY 01/29/17 [History ] Levothyroxine Sodium 50 mg PO DAILY 01/29/17 [History] Multivitamin [Daily Rena] 1 tab PO DAILY 01/29/17 [History] Acetaminophen [Tylenol] 650 mg PO Q6H PRN #0 tablet 01/31/17 [Rx] Ibuprofen [IJD: Ibuprofen] 200 - 600 mg PO Q6H PRN #0 tablet 01/31/17 [Rx] Acetaminophen/HYDROcodone [[place] 325-5 MG] 1 - 2 tab PO Q6H PRN #20 tablet 06/17 [Rx] Hesperidin/Diosmin [Flogen 900 mg Caplet] 1 each PO DAILY 06/17/19 [History] Ondansetron [Zofran ODT] 4 mg PO Q6H PRN #10 tab.dis 06/17/19 [Rx] Past Medical History HEENT History: Reports: Impaired Vision, Other (See Below) Other HEENT History: wears glasses, contacts Cardiovascular History: Reports: None Respiratory History: Reports: Other (See Below) Other Respiratory History: cough Genitourinary History: Reports: None CASING TESTER History: Reports: Fibroids, Other (See Below) Other CASING TESTER History: dysmenorrhea, fibroids, menorrhagia, irregular menses Musculoskeletal History: Reports: Other (See Below) Other Musculoskeletal History: L wrist ganglion cyst Neurological History: Reports: None Psychiatric History: Reports: Anxiety, Other (See Below) Other Psychiatric History: insomnia Endocrine/Metabolic History: Reports: Hypothyroidism Hematologic History: Reports: None Immunologic History: Reports: None Oncologic (Cancer) History: Reports: None Dermatologic History: Reports: Other (See Below) Other Dermatologic History: perioral dermatitis - Infectious Disease History Infectious Disease History: Reports: Chicken Pox - Past Surgical History Head Surgeries/Procedures: Reports: None HEENT Surgical History: Reports: Adenoidectomy, Tonsillectomy Cardiovascular Surgical History: Reports: None GI Surgical History: Reports: Appendectomy Female Surgical History: Reports: Hysterectomy Endocrine Surgical History: Reports: None Neurological Surgical History: Reports: None Musculoskeletal Surgical History: Reports: Ganglion Cyst Oncologic Surgical History: Reports: None Social & Family History - Family History Family Medical History: Noncontributory Musculoskeletal: Reports: Gout Other Musculoskeletal Family History: father Endocrine/Metabolic: Reports: Diabetes, type II - Tobacco Use Smoking Status *Q: Never Smoker - Caffeine Use Caffeine Use: Reports: Coffee Other Caffeine Use: 1/day - Recreational Drug Use Recreational Drug Use: No ED ROS GENERAL - Review of Systems Review Of Systems: See Below Constitutional: Reports: No Symptoms HEENT: Reports: Vertigo Cardiovascular: Reports: No Symptoms GI/Abdominal: Reports: Abdominal Pain, Nausea, Vomiting. Denies: Constipation, Diarrhea : Reports: No Symptoms Musculoskeletal: Reports: No Symptoms Neurological: Reports: No Symptoms ED EXAM, GI/ABD - Physical Exam Exam: See Below Exam Limited By: No Limitations General Appearance: Alert, Mild Distress (From the pain) Head: Atraumatic, Normocephalic Neck: Normal Inspection, Supple, Non-Tender, Full Range of Motion. No: Lymphadenopathy (L), Lymphadenopathy (R) Respiratory/Chest: No Respiratory Distress, Lungs Clear, Normal Breath Sounds Cardiovascular: Regular Rate, Rhythm, No Edema, No Murmur GI/Abdominal Exam: Normal Bowel Sounds, Soft, Other (She has significant discomfort throughout her abdomen this is indeed worse in the right upper quadrant. Least tender spot is left lower quadrant.). No: Guarding, Rigid, Rebound Back Exam: Normal Inspection. No: CVA Tenderness (L), CVA Tenderness (R) Course - Vital Signs Last Recorded V/S: Last Vital Signs Temp 37.1 C 06/17/19 16:00 Pulse 64 06/17/19 16:00 Resp 24 H 06/17/19 16:00 BP 115/60 06/17/19 16:00 Pulse Ox 100 06/17/19 16:00 - Orders/Labs/Meds Orders: Active Orders 24 hr Category Date Time Status Abdomen Ltd [US] Stat Exams 06/17/19 18:22 Ordered Lactated Ringers [Ringers, Lactated] 1,000 ml Med 06/17/19 17:00 Active IV ASDIRECTED Medication Orders Lactated Ringer's (Ringers, Lactated) 1,000 mls @ 150 mls/hr IV ASDIRECTED YOVANY Last Admin: 06/17/19 17:04 Dose: 150 mls/hr Labs: Laboratory Tests 06/17/19 06/17/19 06/17/19 Range/Units 16:20 16:20 17:20 WBC 9.08 (3.98-10.04) K/mm3 RBC 4.38 (3.98-5.22) M/mm3 Hgb 12.7 D (11.2-15.7) gm/dl Hct 37.9 (34.1-44.9) % MCV 86.5 (79.4-94.8) fl MCH 29.0 (25.6-32.2) pg MCHC 33.5 (32.2-35.5) g/dl RDW Std Deviation 40.8 (36.4-46.3) fL Plt Count 317 (182-369) K/mm3 MPV 9.5 (9.4-12.3) fl Neutrophils % (Manual) 80 H (40-60) % Band Neutrophils % 0 (0-10) % Lymphocytes % (Manual) 14 L (20-40) % Atypical Lymphs % 0 % Monocytes % (Manual) 5 (2-10) % Eosinophils % (Manual) 0 L (0.7-5.8) % Basophils % (Manual) 1 (0.1-1.2) Platelet Estimate Adequate Plt Morphology Comment Normal RBC Morph Comment Normal Sodium 140 (136-145) mEq/L Potassium 3.4 L (3.5-5.1) mEq/L Chloride 104 (98-107) mEq/L Carbon Dioxide 24 (21-32) mEq/L Anion Gap 15.4 H (5-15) BUN 9 (7-18) mg/dL Creatinine 0.9 (0.55-1.02) mg/dL Est Cr Clr Drug Dosing 78.72 mL/min Estimated GFR (MDRD) > 60 (>60) mL/min BUN/Creatinine Ratio 10.0 L (14-18) Glucose 146 H (74-106) mg/dL Calcium 9.6 (8.5-10.1) mg/dL Total Bilirubin 2.2 H (0.2-1.0) mg/dL Direct Bilirubin 0.30 H (0.0-0.2) mg/dl AST 22 (15-37) U/L ALT 24 (14-59) U/L Alkaline Phosphatase 59 (46-116) U/L Total Protein 8.0 (6.4-8.2) g/dl Albumin 4.5 (3.4-5.0) g/dl Globulin 3.5 gm/dL Albumin/Globulin Ratio 1.3 (1-2) Lipase 132 (73-393) U/L Urine Color (Yellow) Urine Appearance (Clear) Urine pH (5.0-8.0) Ur Specific [place] (1.005-1.030) Urine Protein (Negative) Urine Glucose (UA) (Negative) Urine Ketones (Negative) Urine Occult Blood (Negative) Urine Nitrite (Negative) Urine Bilirubin (Negative) Urine Urobilinogen (0.2-1.0) Ur Leukocyte Esterase (Negative) Urine RBC (0-5) /hpf Urine WBC (0-5) /hpf Ur Squamous Epith Cells (0-5) /hpf Amorphous Sediment (NOT SEEN) /hpf Urine Bacteria (FEW) /hpf Urine Mucus (FEW) /hpf 06/17/19 Range/Units 17:30 WBC (3.98-10.04) K/mm3 RBC (3.98-5.22) M/mm3 Hgb (11.2-15.7) gm/dl Hct (34.1-44.9) % MCV (79.4-94.8) fl MCH (25.6-32.2) pg MCHC (32.2-35.5) g/dl RDW Std Deviation (36.4-46.3) fL Plt Count (182-369) K/mm3 MPV (9.4-12.3) fl Neutrophils % (Manual) (40-60) % Band Neutrophils % (0-10) % Lymphocytes % (Manual) (20-40) % Atypical Lymphs % % Monocytes % (Manual) (2-10) % Eosinophils % (Manual) (0.7-5.8) % Basophils % (Manual) (0.1-1.2) Platelet Estimate Plt Morphology Comment RBC Morph Comment Sodium (136-145) mEq/L Potassium (3.5-5.1) mEq/L Chloride (98-107) mEq/L Carbon Dioxide (21-32) mEq/L Anion Gap (5-15) BUN (7-18) mg/dL Creatinine (0.55-1.02) mg/dL Est Cr Clr Drug Dosing mL/min Estimated GFR (MDRD) (>60) mL/min BUN/Creatinine Ratio (14-18) Glucose (74-106) mg/dL Calcium (8.5-10.1) mg/dL Total Bilirubin (0.2-1.0) mg/dL Direct Bilirubin (0.0-0.2) mg/dl AST (15-37) U/L ALT (14-59) U/L Alkaline Phosphatase (46-116) U/L Total Protein (6.4-8.2) g/dl Albumin (3.4-5.0) g/dl Globulin gm/dL Albumin/Globulin Ratio (1-2) Lipase (73-393) U/L Urine Color Yellow (Yellow) Urine Appearance Cloudy H (Clear) Urine pH 8.5 H (5.0-8.0) Ur Specific [place] 1.020 (1.005-1.030) Urine Protein Negative (Negative) Urine Glucose (UA) Negative (Negative) Urine Ketones Trace H (Negative) Urine Occult Blood Negative (Negative) Urine Nitrite Negative (Negative) Urine Bilirubin Negative (Negative) Urine Urobilinogen 0.2 (0.2-1.0) Ur Leukocyte Esterase Negative (Negative) Urine RBC Not seen (0-5) /hpf Urine WBC 0-5 (0-5) /hpf Ur Squamous Epith Cells 10-20 H (0-5) /hpf Amorphous Sediment Many H (NOT SEEN) /hpf Urine Bacteria Few (FEW) /hpf Urine Mucus Not seen (FEW) /hpf Meds: Medications Generic Name Dose Route Start Last Admin Trade Name Freq PRN Reason Stop Dose Admin Lactated Ringer's 1,000 mls @ 150 mls/hr 06/17/19 17:00 06/17/19 17:04 Ringers, Lactated IV 150 mls/hr ASDIRECTED YOVANY Administration Discontinued Medications Generic Name Dose Route Start Last Admin Trade Name Freq PRN Reason Stop Dose Admin Hydrocodone Bitart/Acetaminophen 1 tab 06/17/19 18:42 06/17/19 19:05 [place] 325-5 Mg PO 06/17/19 18:43 1 tab ONETIME ONE Administration Fentanyl 50 mcg 06/17/19 16:55 06/17/19 17:05 Sublimaze IVPUSH 06/17/19 16:56 50 mcg ONETIME ONE Administration Ondansetron HCl 4 mg 06/17/19 16:55 06/17/19 17:05 Zofran IVPUSH 06/17/19 16:56 4 mg ONETIME ONE Administration - Re-Assessments/Exams Free Text/Narrative Re-Assessment/Exam: 06/17/19 19:07 The patient received 50 g of fentanyl and some Zofran here as well as some IV fluids and this took care of her pain and her pain has not returned. Laboratory evaluation shows a bilirubin is elevated at 2.2 direct fraction 0.3 really the rest of her labs look pretty good the patient had some the around 2:30 so an ultrasound would not be practical at this point we'll get gallbladder ultrasound scheduled as an outpatient Departure - Departure Time of Disposition: 19:09 Disposition: Home, Self-Care 01 Clinical Impression: Right upper quadrant abdominal pain - Discharge Information Prescriptions: Acetaminophen/HYDROcodone [[place] 325-5 MG] 1 - 2 tab PO Q6H PRN #20 tablet PRN Reason: Abdominal Pain Ondansetron [Zofran ODT] 4 mg PO Q6H PRN #10 tab.dis PRN Reason: Nausea/Vomiting Instructions: Abdominal Pain, Adult Referrals: PCP,None [Primary Care Provider] - Forms: ED Department Discharge Additional Instructions: Return to the emergency room with any questions problems or worsening symptoms. Get your gallbladder ultrasound done when it is scheduled. Follow-up in the Hospital clinic a day or 2 after the ultrasound to get the results of this and for follow-up on abdominal pain. [phone] You have been started on [place] this is a pain medication take one or 2 every 6 hours only as needed for pain allow 12 hours after using this medication before driving or returning to work. You have also been started on Zofran for nausea and/or vomiting. Take one every 6 hours as needed. Sepsis Event Note - Evaluation Sepsis Screening Result: No Definite Risk - Focused Exam Vital Signs: Vital Signs Temp Pulse Resp BP Pulse Ox 06/17/19 16:00 37.1 C 64 24 H 115/60 100 Date Exam was Performed: 06/17/19 Time Exam was Performed: 19:29 - My Orders Last 24 Hours: My Active Orders 06/17/19 17:00 Lactated Ringers [Ringers, Lactated] 1,000 ml IV ASDIRECTED 06/17/19 18:22 Abdomen Ltd [US] Stat - Assessment/Plan Last 24 Hours: My Active Orders 06/17/19 17:00 Lactated Ringers [Ringers, Lactated] 1,000 ml IV ASDIRECTED 06/17/19 18:22 Abdomen Ltd [US] Stat
[2019-06-17] MEDS ORDERED: Ondansetron 4 MG/2 ML SDV IVPUSH ONE (16:55)
[2019-06-17] MEDS ORDERED: fentaNYL 100 MCG/2 ML SDV IVPUSH ONE (16:55)
[2019-06-17] MEDS ORDERED: Lactated Ringers 1,000 ML IV SCH (17:00)
[2019-06-17] MEDS ORDERED: Acetaminophen/HYDROcodone 325-5 MG Tab PO ONE (18:42)
== END 2019-06-17 19:25 | disposition home or self-care (01) ==
LOC: JD.ED 15:39
DX: R10.11 Right upper quadrant pain (principal); E03.9 Hypothyroidism, unspecified; Z79.899 Other long term (current) drug therapy
CPT/HCPCS: 36415; 80053; 81001; 82248; 83690; 85007; 85027; 96361; 96374; 96375; 99284; A9270; J2405; J3010; J7120

== ENCOUNTER → 2019-09-03 | Day surgery (SDC) | payer BC ==
[~2019-09-03] MED LIST changes: +Bupivacaine 0.25% 10 ML SDV ONE; +Ketorolac 30 MG/ML SDV ONE; +Lidocaine 0.5% 50 ML SDV ONE; +Lidocaine 1% 4 ML ONE; +Lidocaine 1%/Sod Bicarbonate in NS 8.4% 1 ML Syringe IDERM PRN; -Lidocaine 1%/Sod Bicarbonate in NS 8.4% 1 ML Syringe PRN; +Midazolam 1 MG/ML 2 ML SDV ONE; +Ondansetron 4 MG/2 ML SDV IVPUSH PRN; +Ondansetron 4 MG/2 ML SDV ONE; +Propofol 200 MG/20 ML SDV ONE; +Scopolamine 1.5 MG Transdermal Patch TRDERM PRN; +Sodium Bicarbonate 8.4% 50 MEQ/50 ML SDV ONE; +ceFAZolin 1 GM Vial ONE; +fentaNYL 100 MCG/2 ML SDV ONE
--- NOTE | 2019-09-03 06:56 | PCM.PREANE ---
Preanesthetic Assessment - Procedure Proposed Procedure: volar left wrist ganglion cyst excision - Anesthesia/Transfusion/Family Hx Anesthesia History: Prior Anesthesia Reaction Type of Anesthesia Reaction: Excessive Nausea/Vomiting Family History of Anesthesia Reaction: No Transfusion History: No Prior Transfusion(s) Type of Transfusion Reactions: Reports: Unknown - Review of Systems General: No Symptoms Pulmonary: No Symptoms Cardiovascular: No Symptoms Gastrointestinal: No Symptoms Neurological: No Symptoms Other: Reports: Thyroid Problems - Physical Assessment NPO Status Date: 09/02/19 NPO Status Time: 18:00 Vital Signs: 109/59 58 100% 16 98.0 Height: 5 ft 7 in Weight: 61.235 kg ASA Class: 2 Mental Status: Alert & Oriented x3 Airway Class: Mallampati = 1 Dentition: Reports: Normal Dentition Thyro-Mental Finger Breadths: 3 Mouth Opening Finger Breadths: 3 ROM/Head Extension: Full Lungs: Clear to Auscultation, Normal Respiratory Effort Cardiovascular: Regular Rate, Regular Rhythm - Allergies Allergies/Adverse Reactions: Allergies Allergy/AdvReac Type Severity Reaction Status Date / Time No Known Allergies Allergy Verified 09/02/19 16:26 - Blood Blood Available: No - Acknowledgements Anesthesia Type Planned: SAGAR Pt an Appropriate Candidate for the Planned Anesthesia: Yes Alternatives and Risks of Anesthesia Discussed w Pt/Guardian: Yes Pt/Guardian Understands and Agrees with Anesthesia Plan: Yes PreAnesthesia Questionnaire HEENT History: Reports: Allergic Rhinitis, Impaired Vision, Other (See Below) Other HEENT History: wears glasses, contacts Cardiovascular History: Reports: None Respiratory History: Reports: None Gastrointestinal History: Reports: None Genitourinary History: Reports: None 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: Fibroids, Other (See Below) Other OB/BYN History: dysmenorrhea, fibroids, menorrhagia, irregular menses Musculoskeletal History: Reports: Other (See Below) Other Musculoskeletal History: L wrist ganglion cyst Neurological History: Reports: None Psychiatric History: Reports: Other (See Below) Other Psychiatric History: insomnia Endocrine/Metabolic History: Reports: Hypothyroidism Hematologic History: Reports: None Immunologic History: Reports: None Oncologic (Cancer) History: Reports: None Dermatologic History: Reports: Other (See Below) Other Dermatologic History: perioral dermatitis - Infectious Disease History Infectious Disease History: Reports: Chicken Pox - Past Surgical History Head Surgeries/Procedures: Reports: None HEENT Surgical History: Reports: Adenoidectomy, Tonsillectomy Cardiovascular Surgical History: Reports: None Respiratory Surgical History: Reports: None GI Surgical History: Reports: Appendectomy Female Surgical History: Reports: Hysterectomy Endocrine Surgical History: Reports: None Neurological Surgical History: Reports: None Musculoskeletal Surgical History: Reports: Ganglion Cyst Oncologic Surgical History: Reports: None - SUBSTANCE USE Smoking Status *Q: Never Smoker Tobacco Use Within Last Twelve Months: No Second Hand Smoke Exposure: No Days Per Week of Alcohol Use: 1 Recreational Drug Use History: No - HOME MEDS Home Medications: Home Meds Cholecalciferol (Vitamin D3) [Vitamin D3] 1,000 unit PO DAILY 01/29/17 [History] Fish Oil/[place]-3 Fatty Acids [Fish Oil 1,000 MG] 1 gm PO DAILY 01/29/17 [History ] Levothyroxine Sodium 50 mg PO DAILY 01/29/17 [History] Multivitamin [Daily Rena] 1 tab PO DAILY 01/29/17 [History] Melatonin 5 mg PO BEDTIME 09/02/19 [History] - CURRENT (IN HOUSE) MEDS Current Meds: Current Medications Lactated Ringer's (Ringers, Lactated) 1,000 mls @ 125 mls/hr IV ASDIRECTED YOVANY Stop: 09/03/19 23:00 Lidocaine/Sodium Bicarbonate (Buffered Lidocaine 1% In Ns 8.4%) 0.25 ml IDERM ONETIME PRN PRN Reason: Prior to IV Start Stop: 09/03/19 18:00 Scopolamine (Transderm-Scop) 1.5 mg TRDERM ONETIME PRN PRN Reason: PONV Stop: 09/03/19 16:00 Sodium Chloride (Saline Flush) 10 ml FLUSH ASDIRECTED PRN PRN Reason: Keep Vein Open Stop: 09/03/19 18:00
--- NOTE | 2019-09-03 08:17 | PCM48HPAN ---
Post Anesthesia Note - EVALUATION WITHIN 48HRS OF ANESTHETIC Vital Signs in Normal Range: Yes Patient Participated in Evaluation: Yes Respiratory Function Stable: Yes Airway Patent: Yes Cardiovascular Function Stable: Yes Hydration Status Stable: Yes Pain Control Satisfactory: Yes Nausea and Vomiting Control Satisfactory: Yes Mental Status Recovered: Yes Vital Signs: Last Vital Signs Temp 98.0 F 09/03/19 06:55 Pulse 58 L 09/03/19 06:55 Resp 16 09/03/19 06:55 BP 109/59 L 09/03/19 06:55 Pulse Ox 100 09/03/19 06:55 109/59 58 100% 16 98.0
[2019-09-03 08:45] VITALS: BP 100/49; PULSE 51
--- NOTE | 2019-09-09 06:43 | PCM.OPNOTE ---
- General Post-Op/Procedure Note Date of Surgery/Procedure: 09/03/19 Operative Procedure(s): excision of left wrist volar recurrent ganglion cyst Pre Op Diagnosis: recurrent left wrist ganglion cyst Post-Op Diagnosis: Same Anesthesia Technique: MAC, Regional Block Primary Surgeon: Ryan Ortiz Anesthesia Provider: Leeanna Romeo Emergency Medicine Nurse Practitioner: Lilibteh Pineda in mLs: 5 Complications: None Condition: Good
--- NOTE | 2019-09-09 07:36 | OR ---
DATE OF OPERATION: 09/03/2019 SURGEON: Ryan Ortiz MD OPERATION PERFORMED: Excision of left wrist volar recurrent ganglion cyst. PREOPERATIVE DIAGNOSIS: Recurrent left wrist ganglion cyst. POSTOPERATIVE DIAGNOSIS: Recurrent left wrist ganglion cyst. ANESTHESIA: Regional Ballplay block with MAC. ANESTHESIA PROVIDER: Leeanna Romeo CRNA. COLD MEAT COOK: Lilibeth Pineda PA-C. ESTIMATED BLOOD LOSS: Less than 5 mL. COMPLICATIONS: None. CONDITION: Stable. DESCRIPTION OF PROCEDURE: The patient was identified in the preoperative holding area where proper site was marked and identified by surgeon. The patient was taken back to the operating theater, where after adequate anesthesia, the patient's left upper extremity had a Cheryl block done, and was sterilely prepped and draped in usual sterile fashion. OR time-out was performed. The patient had received 2 g of IV Ancef before the Ballplay block. Standard longitudinal incision was made over the volar ganglion cyst and then blunt dissection was taken around to the stalk making sure to keep the track of the radial artery during the entirety of it. It was noted to be multiloculated as well as multiple stalks. It was resected from the stalk at this time. The stalks were then visualized. Secondary to their locations, we were unable to Bovie them, and secondary to the large amount of scar tissue, it was hard to tell tissues, but it was believed that the stalks were not viable at this time. Adequate saline was then irrigated through the wound. 3-0 Vicryl was used subcutaneously, and Monocryl was used for the skin. The patient tolerated this well and the mass was sent to pathology. MMODAL /[id number]
== END | disposition home or self-care (01) ==
LOC: JD.SDS 06:40
PROVIDERS: ATTEND Orthopaedic Surgery
DX: M67.432 Ganglion, left wrist (principal); E03.9 Hypothyroidism, unspecified; Z79.899 Other long term (current) drug therapy
CPT/HCPCS: 25112; J0690; J1885; J2001; J2250; J2405; J2704; J3010; J3490; J7120; 01810

== ENCOUNTER 2022-02-06 10:53 | Day surgery (SDC) | payer BC ==
[~2022-02-06 10:53] MED LIST changes: -Bupivacaine 0.25% 10 ML SDV ONE; -Ketorolac 30 MG/ML SDV ONE; -Lidocaine 0.5% 50 ML SDV ONE; -Lidocaine 1% 4 ML ONE; -Midazolam 1 MG/ML 2 ML SDV ONE; -Ondansetron 4 MG/2 ML SDV IVPUSH PRN; -Ondansetron 4 MG/2 ML SDV ONE; -Propofol 200 MG/20 ML SDV ONE; -Scopolamine 1.5 MG Transdermal Patch TRDERM PRN; -Sodium Bicarbonate 8.4% 50 MEQ/50 ML SDV ONE; +Sodium Chloride 0.9% 10 ML Syringe FLUSH SCH; -ceFAZolin 1 GM Vial ONE; -fentaNYL 100 MCG/2 ML SDV ONE
[2022-02-06] MEDS ORDERED: fentaNYL 100 MCG/2 ML SDV ONE (12:00)
[2022-02-06] MEDS ORDERED: Midazolam 1 MG/ML 2 ML SDV ONE (12:01)
[2022-02-06] MEDS ORDERED: Propofol 200 MG/20 ML SDV ONE (12:01)
[2022-02-06] MEDS ORDERED: Lidocaine 1% 2 ML ONE (12:02)
[2022-02-06] MEDS ORDERED: Ondansetron 4 MG/2 ML SDV ONE (12:34)
[2022-02-06 13:32] VITALS: BP 128/70; PULSE 75
== END 2022-02-06 13:30 | disposition home or self-care (01) ==
LOC: JD.SDS 10:53
PROVIDERS: ATTEND Surgery
DX: Z12.11 Encounter for screening for malignant neoplasm of colon (principal); K63.5 Polyp of colon; F41.9 Anxiety disorder, unspecified; J30.9 Allergic rhinitis, unspecified; E03.9 Hypothyroidism, unspecified; F10.10 Alcohol abuse, uncomplicated; Z79.899 Other long term (current) drug therapy; Z80.0 Family history of malignant neoplasm of digestive organs; Z79.52 Long term (current) use of systemic steroids; Z79.890 Hormone replacement therapy; Z88.9 Allergy status to unspecified drugs, medicaments and biological substances; Z90.49 Acquired absence of other specified parts of digestive tract; Z98.890 Other specified postprocedural states; Z90.710 Acquired absence of both cervix and uterus
CPT/HCPCS: 45380; J2250; J2405; J2704; J3010; J7120; 00812